=== PATIENT | female | born 1970 | race Caucasian/White ===

== ENCOUNTER 2017-06-04 20:29 | Emergency (ER) | payer OTHER ==
[~2017-06-04] VITALS: Ht 165.1 cm; Wt 47.6 kg
[2017-06-04] MEDS ORDERED: LEXAPRO 10 MG T10 M1 PO (22:01)
== END 2017-06-04 23:38 | disposition home or self-care (01) ==
LOC: ER 20:29
DX: F10.129 Alcohol abuse with intoxication, unspecified (principal)